=== PATIENT | male | born 1970 | race Caucasian/White ===

== ENCOUNTER 2022-08-05 09:56 | Emergency (ER) | payer MEDICAID, MEDICARE ==
[~2022-08-05] VITALS: Ht 170.2 cm; Wt 65.8 kg
[2022-08-05 10:07] VITALS: BP 129/66
[2022-08-05] MEDS ORDERED: WARF-58 PO (10:22)
--- NOTE | 2022-08-05 10:30 | NUR ---
CALLED REPRODUCTION SPECIALISTJOSE FOR ASSISTANCE.
--- NOTE | 2022-08-05 10:50 | NUR ---
Momd Teacher Consult SW was contacted by ED for a homeless consult. Pt. is a 52 year old male who was seen in the ER for medication prescriptions. SW met with pt. Pt. reported that he is homeless and had come to the ER to get medication prescriptions but has no ID. YEVGENIY offered pt. resources and directions to [facility] [place] ([address] [place] [address], ). YEVGENIY offered pt. [facility] and homeless resources in which pt. accepted them. YEVGENIY provided pt. with printed directions to [facility] ([id number] [place] [address]) and provided directions to the [facility] to which pt needed to pickling solution maker his prescriptions ( [address] [place] [address]). YEVGENIY provided pt. with a TAP card in which pt accepted.
--- NOTE | 2022-08-05 11:10 | NUR ---
PER VERONICA GARCIA IS THE SW TODAY AND SHE WILL LET HER KNOW TO SEE PT
--- NOTE | 2022-08-05 11:54 | NUR ---
PT SEEN BY TRAINING COORDINATOR VERONICA. CLEARED FOR DISCHARGE. WAS PROVIDED W REFFERALS. D/C IN STABLE CONDITON.
== END 2022-08-05 11:58 | disposition home or self-care (01) ==
LOC: ER 10:09
DX: Z76.0 Encounter for issue of repeat prescription (principal); Z79.899 Other long term (current) drug therapy

== ENCOUNTER 2022-09-10 20:04 | Emergency (ER) | payer MEDICAID ==
[~2022-09-10] VITALS: Ht 177.8 cm; Wt 67.6 kg
[~2022-09-10 20:04] MED LIST: WARF-58 PO
[2022-09-10 20:28] VITALS: BP 155/90
[2022-09-10] MEDS ORDERED: WARF-58 PO (20:48)
== END 2022-09-10 20:51 | disposition home or self-care (01) ==
LOC: ER 20:13
DX: Z76.0 Encounter for issue of repeat prescription (principal); Z98.890 Other specified postprocedural states; Z59.00 Homelessness unspecified; Z79.01 Long term (current) use of anticoagulants; Z86.73 Personal history of transient ischemic attack (TIA), and cerebral infarction without residual deficits